=== PATIENT | female | born 1950 | race Caucasian/White ===

== ENCOUNTER → 2019-06-02 | Outpatient (CLI) | payer OTHER | END | disposition home or self-care (01) | LOC: LAB SHORT 13:29 → LAB 13:29 | DX: N39.0 Urinary tract infection, site not specified (principal) | CPT/HCPCS: 87077; 87086; 87186 ==

== ENCOUNTER → 2022-04-25 | Outpatient (CLI) | payer MEDICARE, OTHER | LOC: LAB SHORT 09:40 | DX: R39.15 Urgency of urination (principal) | CPT/HCPCS: 87086 ==

== ENCOUNTER → 2024-04-17 | Outpatient (CLI) | payer OTHER | LOC: LAB SHORT 14:04 → LAB 14:04 | DX: R35.0 Frequency of micturition (principal); R39.15 Urgency of urination; R33.9 Retention of urine, unspecified | CPT/HCPCS: 87086 ==

== ENCOUNTER 2024-09-09 13:15 | Day surgery (SDC) | payer OTHER ==
[~2024-09-09] VITALS: Ht 160 cm; Wt 69.0 kg
[~2024-09-09 13:15] MED LIST: AMLO10 PO; METF500C PO; OLME20 PO; PANT40 PO
[2024-09-09] MEDS ORDERED: AMLODIPINE-OLM1 EAC5 (13:25)
[2024-09-09 15:15] VITALS: BP 134/57
== END 2024-09-09 15:05 | disposition home or self-care (01) ==
LOC: ORSCSDS 13:15
PROVIDERS: Surgery
PROC: 0DJ08ZZ Inspection of Upper Intestinal Tract, Via Natural or Artificial Opening Endoscopic (ICD-10-PCS; principal; 2024-09-09 14:15)
DX: K25.3 Acute gastric ulcer without hemorrhage or perforation (principal); D50.0 Iron deficiency anemia secondary to blood loss (chronic); B96.81 Helicobacter pylori [H. pylori] as the cause of diseases classified elsewhere; I12.9 Hypertensive chronic kidney disease with stage 1 through stage 4 chronic kidney disease, or unspecified chronic kidney disease; N18.9 Chronic kidney disease, unspecified; I47.10 Supraventricular tachycardia, unspecified; Z79.899 Other long term (current) drug therapy
CPT/HCPCS: 88305; 88342; J2704; J7120